=== PATIENT | female | born 1985 | race Hispanic/Latino ===

== ENCOUNTER → 2024-12-11 | Outpatient (CLI) | payer OTHER ==
[~2024-12-11] VITALS: Ht 15.2 cm; Wt 158.7 kg
--- NOTE | 2024-12-11 15:07 | NUR ---
BARIATRIC INITIAL ASSESSMENT VISIT 1 OF 6 Wt: 349.8 lbs DOS: 12/11/24 present during visit. Pt seeking bariatric procedure to aid in wt loss and improve medical health conditions. Pt reported he heard of procedure from family, takes control, has struggled with wt all her life, has tried to lose wt in the past from pills + FAD diets, mothers side struggle with wt, is the one that cooks at home, has a picky 8 year old, normally eats 2 meals per day, 2 snacks per day, sodas 1x per week, sweet/salty sncaks 2x per week, fast food 2-3 x per week, takes 10 mi to eat, does not struggle with stress eating, does not struggle with anxiety or depression, does not work, no plans to become , no hx of infertility, has means to purchase healthy food with no issue, does not travel often, sleeps 7 hrs per night, is able to exercise, being support system, 170 lb in [address] conducted 24 hr recall: Breakfast: chicken salad + water Lunch: skipped Dinner: burger + fries + diet soda Snack(s): chips RD reviewed portion sizes with pt, reviewed healthy plate, informed Pt of importance of protein intake, demonstrated DM chart, reviewed carbohydrate sources and carbohydrate counting, provided and an estimate for estimated carbohydrate intake per day. Pt completed wt management program diet readiness questionnaire. Results are as follows: Section 1: Goals and Attitudes. Score of 25.The path is clear with respect to goals and attitudes. Sections 2: Hunger and Eating cues. Score 3. You might occasionally eat more than you would like, but it does not appear to be a result of high responsiveness to environmental cues. Controlling the attitudes that make you eat may be especially helpful. Section 3: Control over Eating. Score 3. You recover rapidly from mistakes. However, if you frequently alternate between eating out of control and dieting strictly, you may have a serious eating problem and should get professional help. Section 4: Sima Eating and Purging: Score 0. It appears that binge eating, and purging is not a problem for you. Section 5: Emotional Eating: Score 4. You do not appear to let your emotions affect your eating. Section 6: Exercise Patterns and Attitudes: Score 16. You need to feel more positive about exercise so that you can do it more often. Think of ways to be more active that are fun and fit your lifestyle. Goals Established: -MVI QD -decrease carbonation -walking 3 x per week for 10 min Pt in agreement with goals and is aware she will need to cut carbonated beverages, sweets and caffeine prior to surgery. Recommended for Pt to complete visits with Dietitian to prepare for bariatric procedure. Thank you for this visit. Addendum: 12/11/24 at [address] Amended: Links added.
== END | disposition home or self-care (01) ==
LOC: DTH 08:58
PROVIDERS: ATTEND Surgery
DX: I10 Essential (primary) hypertension (principal); G47.33 Obstructive sleep apnea (adult) (pediatric); K21.9 Gastro-esophageal reflux disease without esophagitis; M19.91 Primary osteoarthritis, unspecified site; E78.00 Pure hypercholesterolemia, unspecified; K76.0 Fatty (change of) liver, not elsewhere classified; E66.01 Morbid (severe) obesity due to excess calories; Z68.43 Body mass index [BMI] 50.0-59.9, adult
CPT/HCPCS: 97802